=== PATIENT | female | born 1985 | race Caucasian/White ===

== ENCOUNTER 2016-08-20 10:23 | Emergency (ER) | payer OTHER | END 2016-08-20 12:05 | disposition home or self-care (01) | LOC: ER1 10:23 | DX: G43.909 Migraine, unspecified, not intractable, without status migrainosus (principal); Z88.2 Allergy status to sulfonamides | CPT/HCPCS: 96365; 96366; 96375; 99283; J1200; J1885; J2765; J7030 ==

== ENCOUNTER 2020-08-05 17:07 | Inpatient (IN) | payer OTHER ==
[~2020-08-05] VITALS: Ht 152.4 cm; Wt 82.6 kg
[2020-08-05 19:27] LABS: HEMOGLOBIN 10.9 gm/dl (12.3-15.3); RED BLOOD COUNT 4.1 M/UL (4.00-5.10); WHITE BLOOD COUNT 9.1 K/UL (4.5-11.0)
[2020-08-06] MEDS ORDERED: DOCUSATE SODIU100 MG PO (16:26)
[2020-08-06] MEDS ORDERED: IBUPROFEN600 MG PO (16:26)
[2020-08-07 02:08] LABS: HEMOGLOBIN 10.6 gm/dl (12.3-15.3)
== END 2020-08-07 18:02 | disposition home or self-care (01) | DRG 807 ==
LOC: GENOP 17:07 → OB 17:22
PROVIDERS: Obstetrics & Gynecology; ADMIT Obstetrics & Gynecology
PROC: 0U7C7ZZ Dilation of Cervix, Via Natural or Artificial Opening (ICD-10-PCS; principal; 2020-08-05)
PROC: 4A1HX4Z Monitoring of Products of Conception, Cardiac Electrical Activity, External Approach (ICD-10-PCS; 2020-08-05)
PROC: 10E0XZZ Delivery of Products of Conception, External Approach (ICD-10-PCS; 2020-08-06)
PROC: 10907ZC Drainage of Amniotic Fluid, Therapeutic from Products of Conception, Via Natural or Artificial Opening (ICD-10-PCS; 2020-08-06)
DX: O99.824 Streptococcus B carrier state complicating childbirth (principal); Z37.0 Single live birth; Z3A.39 39 weeks gestation of pregnancy; Z20.822 Contact with and (suspected) exposure to COVID-19
CPT/HCPCS: 51702; 81001; 82800; 85014; 85018; 85025; 85461; 86850; 86900; 86901; 90707; J2210; J2405; J2790; J2795; U0002